=== PATIENT | male | born 1955 | race Caucasian/White ===

== ENCOUNTER 2025-07-04 20:58 | Emergency (ER) | payer MEDICARE, MEDICAID ==
[~2025-07-04] VITALS: Ht 172.7 cm; Wt 105.0 kg
[2025-07-04] MEDS ORDERED: NOREPINEPHRINE 8MG/250ML PMX 250 ML IV ONE (21:27)
== END 2025-07-05 00:07 ==
LOC: ER 20:58 → EDBD 20:58 → ER 07-05 00:07
DX: I46.9 Cardiac arrest, cause unspecified (principal); E11.9 Type 2 diabetes mellitus without complications; J44.9 Chronic obstructive pulmonary disease, unspecified
CPT/HCPCS: 82962; 92950; 31500; 99285; J3490; 94070; 94664